=== PATIENT | female | born 1980 | race Caucasian/White ===

== ENCOUNTER → 2020-04-22 08:05 | Outpatient (BNVA) | payer OTHER, SELFPAY | PROVIDERS: Visit Provider Internal Medicine | DX: Z11.59 Encounter for screening for other viral diseases (principal) | CPT/HCPCS: 87635 ==

== ENCOUNTER → 2020-07-27 11:15 | Outpatient (BNVA) | payer SELFPAY | PROVIDERS: Visit Provider Internal Medicine | DX: G25.81 Restless legs syndrome (principal) | CPT/HCPCS: 80053; 82607; 83550; 84443; 85025 ==

== ENCOUNTER → 2020-10-05 10:38 | Outpatient (BNVA) | payer SELFPAY | PROVIDERS: Visit Provider Nurse Practitioner Family | DX: S92.425A Nondisplaced fracture of distal phalanx of left great toe, initial encounter for closed fracture (principal); X58.XXXA Exposure to other specified factors, initial encounter; M79.672 Pain in left foot | CPT/HCPCS: 73630 ==

== ENCOUNTER → 2020-11-02 07:58 | Outpatient (BNVA) | payer SELFPAY | PROVIDERS: Visit Provider Podiatrist Foot & Ankle Surgery | DX: S92.425A Nondisplaced fracture of distal phalanx of left great toe, initial encounter for closed fracture (principal); X58.XXXA Exposure to other specified factors, initial encounter | CPT/HCPCS: 73630 ==

== ENCOUNTER → 2022-03-02 18:22 | Outpatient (BNVA) | payer OTHER, SELFPAY | PROVIDERS: PCP Family Medicine; Visit Provider Emergency Medicine | DX: R05.9 Cough, unspecified (principal) | CPT/HCPCS: 71046 ==

== ENCOUNTER 2022-03-21 13:33 | Outpatient (CLI) | payer OTHER, SELFPAY ==
--- NOTE | 2022-03-21 15:00 | US_ITS ---
WS: [id number] TRANSABDOMINAL PELVIC AND TRANSVAGINAL PELVIC ULTRASOUND HISTORY: N92.0 - Excessive and frequent menstruation with regular ... COMPARISON: None available. Uterus: 10.2 cm x 6.1 cm x 5.3 cm. Mildly enlarged anteverted uterus. No fibroid or mass. Normal endo metrium. Endometrium: 1.6 cm. Mildly thickened heterogeneous endometrium. Junctional zone is intact. No eviden ce for adenomyosis. Small nabothian cysts. Right ovary: 2.8 cm x 1.4 cm x 1.4 cm. Normal size and echogenicity. Normal vascularity. Left ovary: 2.9 cm x 2.6 cm x 1.9 cm. Normal size and echogenicity. Collapsing corpus luteum measures 1.3 x 0.8 x 0.9 cm. Tiny amount of free fluid in the cul-de-sac. US/US pelvic with transvaginal IMPRESSION: 1. Endometrium is top normal size with mild heterogeneity. No mass or loss of the normal junctional zone. 2. Physiologic free fluid. 3. Mild uterine enlargement.
== END 2022-03-21 13:34 | disposition home or self-care (01) ==
LOC: RAD 13:34
PROVIDERS: PCP Family Medicine; Visit Provider Nurse Practitioner Women's Health
DX: N92.0 Excessive and frequent menstruation with regular cycle (principal); N85.2 Hypertrophy of uterus
CPT/HCPCS: 76830; 76856

== ENCOUNTER → 2022-03-28 10:07 | Outpatient (BNVA) | payer OTHER, SELFPAY | PROVIDERS: PCP Family Medicine; Visit Provider Obstetrics & Gynecology | DX: N92.0 Excessive and frequent menstruation with regular cycle (principal); N88.2 Stricture and stenosis of cervix uteri; Z12.4 Encounter for screening for malignant neoplasm of cervix | CPT/HCPCS: 87624 ==